=== PATIENT | male | born 1960 | race Caucasian/White ===

== ENCOUNTER 2023-10-22 13:45 | Inpatient (IN) | payer BC ==
[~2023-10-22] VITALS: Ht 170.2 cm; Wt 104.1 kg
[2023-10-22] MEDS ORDERED: EPITOL PO (16:46)
[2023-10-22] MEDS ORDERED: KEPPRA1000 MG PO ×2 (16:47)
[2023-10-22 16:51] VITALS: BP 130/61; PULSE 89; TEMP 97.5
[2023-10-22] MEDS ORDERED: LAMICTAL200 MG PO (16:51)
[2023-10-22] MEDS ORDERED: TYLENOL 500MG500 MG PO (16:53)
[2023-10-22] MEDS ORDERED: MILK OF MA400 MG/52 PO (16:54)
[2023-10-22] MEDS ORDERED: ASPIRIN 32325 MG/TAB PO (16:55)
[2023-10-22] MEDS ORDERED: DULCOLAX S10 MG/SUPP RC (16:55)
[2023-10-22] MEDS ORDERED: KLONOPIN 0.5MG0.5 MG PO (16:56)
[2023-10-22] MEDS ORDERED: NEURONTIN100 MG/CAP PO (16:56)
[2023-10-22] MEDS ORDERED: VITAMIN A PO (16:58)
[2023-10-22] MEDS ORDERED: ASCORBIC ACID PO (16:58)
[2023-10-22] MEDS ORDERED: VITAMIN E PO (16:58)
[2023-10-22] MEDS ORDERED: OXY IR5 MG PO (16:59)
[2023-10-22] MEDS ORDERED: SENNA-S 50 MG-81 TAB PO (17:00)
[2023-10-22] MEDS ORDERED: Acetaminophen 325 MG TAB PO PRN (17:15)
[2023-10-22] MEDS ORDERED: Naloxone 0.4 MG/ML VIAL IV PRN (17:15)
[2023-10-22] MEDS ORDERED: oxyCODONE 5 MG TAB PO PRN (17:15)
[2023-10-22] MEDS ORDERED: Docusate Sodium 100 MG CAP PO PRN (17:15)
[2023-10-22] MEDS ORDERED: Sennosides/Docusate 8.6-50 MG TAB PO PRN (17:15)
[2023-10-22] MEDS ORDERED: Polyethylene Glycol 3350 17 GM PDS PO PRN (17:15)
[2023-10-22] MEDS ORDERED: carBAMazepine 200 MG TAB PO SCH (17:26)
--- NOTE | 2023-10-22 17:50 | NUR ---
1625 THIS RN WENT DOWN TO PT ADMISSIONS TO TRANSPORT PT TO ROOM 333. PT WAS ADMITTED FROM THE [facility] POST L TOTAL HIP REVISION. PT IS AXOX4. PT IS ON RA. PT HAS CONGENITAL DEFECTS CAUSING SHORTER ARM LENGTH. 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 PT'S HOME MEDS IN PTS MED BIN IN MED ROOM AND PHARMACY CALLED TO [facility]. PT ORIENTED TO ROOM AND FLOOR. PT GIVEN CALL LIGHT AND INSTRUCTED TO CALL WITH ALL NEEDS. PT HAS A MEPILEX TO LEFT HIP WITH OLD DRAINAGE, MARKED BY THE SURGICAL CENTER, WITH NO CHANGES. DRESSING TO BE CHANGED ON POD7. 1655- BEDSIDE TO EVALUATE PT.
[2023-10-22 19:00] VITALS: BP_SYST 130
--- NOTE | 2023-10-22 19:00 | NUR ---
Received change of shift report from day shift nurse. Patient up in chair during report. No needs reported. Call light in reach.
[2023-10-22] MEDS ORDERED: levETIRAcetam 500 MG TAB PO SCH (21:00)
[2023-10-22] MEDS ORDERED: lamoTRIgine 100 MG TAB PO SCH (21:00)
[2023-10-22] MEDS ORDERED: Sennosides/Docusate 8.6-50 MG TAB PO SCH (21:00)
[2023-10-22] MEDS ORDERED: clonazePAM 0.5 MG TAB PO SCH (21:00)
[2023-10-22] MEDS ORDERED: Aspirin 325 MG TAB PO SCH (21:00)
--- NOTE | 2023-10-22 23:01 | NUR ---
Patient resting in bed with no needs reported at this time. Exit alarm on, call light in reach.
[2023-10-23 04:27] VITALS: BP 149/80; PULSE 83; TEMP 98.3
[2023-10-23 07:00] VITALS: BP_SYST 149
--- NOTE | 2023-10-23 07:27 | NUR ---
RECIEVED REPORT FROM INOCENCIO FLORES RN.
--- NOTE | 2023-10-23 07:58 | NUR ---
Change of shift report given to day shift nurseRegine.
[2023-10-23] MEDS ORDERED: Gabapentin 100 MG CAP PO SCH (09:00)
[2023-10-23] MEDS ORDERED: levETIRAcetam 500 MG TAB PO SCH (09:00)
--- NOTE | 2023-10-23 09:47 | NUR ---
PT ALERT AND ORIENTED. SHIFT ASSESSMENT COMPLETE. VSS, MEDICATED PER EMAR. DENIES FURHTER NEEDS AT THIS TIME, CALL LIGHT WITHIN REACH. CHAIR ALARM SET.
--- NOTE | 2023-10-23 17:04 | NUR ---
Has lack of transportation kept you from medical appts, meetings, work, or from getting things needed for daily living? no How often do you feel lonely or isolated from those around you? rarely Over the past 5 days, how much of the time has pain made it hard for you to sleep? frequently Over the past 5 days, how often have you limited your participation in therapy due to pain? occasionally Over the past 5 days, how often have you limited your day-to-day activities because of pain? rarely/not at all Have you had 2 or more falls in the past year or any fall with an injury? yes Did you have major surgery during the 100 days prior to admission? yes
[2023-10-23 17:49] VITALS: BP 120/74; PULSE 93; TEMP 98.8
[2023-10-23 19:01] VITALS: BP_SYST 120
--- NOTE | 2023-10-23 19:02 | NUR ---
RECEIVED CHANGE OF SHIFT REPORT FROM DAY SHIFT NURSE. EXIT ALARMS ON WHEN IN BED OR UP IN CHAIR WITH CALL LIGHT IN REACH.
[2023-10-24 05:07] VITALS: BP 141/68; PULSE 73; TEMP 97.6
--- NOTE | 2023-10-24 05:19 | NUR ---
UP TO BATHROOM, DENIES ANY OTHER NEEDS OR CONCERNS AT THIS TIME. RESTING IN BED AFTER BACK FROM BATHROOM, EXIT ALARM ON, CALL LIGHT IN REACH.
[2023-10-24 07:05] VITALS: BP_SYST 141
--- NOTE | 2023-10-24 07:13 | NUR ---
CHANGE OF SHIFT REPORT GIVEN TO DAY SHIFT NURSETAL.
--- NOTE | 2023-10-24 08:00 | NUR ---
PT ALERT AND ORIENTED. ASSESSES, MEDICATED PER EMAR. PT DENIES PAIN AT THIS TIME. DENIES FURTHER NEED AT THIS TIME. CALL LIGHT WITHIN REACH. CHAIR ALARM SET.
--- NOTE | 2023-10-24 10:34 | NUR ---
Initial visit; Patient thanked News Reporter for looking in on him and visiting about his former work in [place]. News Reporter offered Spiritual Care and and wished Ze well.
--- NOTE | 2023-10-24 10:49 | NUR ---
supervisor shed workers met with pt to complete intake to IPR floor. Patient states he lives alone in [place]. He sees Dr. Aviles and obtains medications from [facility] with no difficulties. He reports his contacts to be his brother, Pierre [phone] and sister, Chandrika [phone]. His mother is . He does not have a DPOA-HC, but completed one listing his siblings. He does not have stairs at home. Patient reports he has gnosticism friends that drive him around. Patient has a FWW and shower chair. He reports to be independent with ADLS, but [facility], and [facility]. SW informed him of potential discharge for 10/31 and patient was agreeable. He reports wanting to go home with [facility] services. SW had OT Taiwo witness DPOA-HC. Copy in chart and patient with original and copies. [facility] and [facility] informed they are no longer a certified HH agency. Patient will need to chose another agency. Discharge Plan: 10/31 Home with HH tbd
[2023-10-24 17:37] VITALS: BP 152/79; PULSE 83; TEMP 98.1
[2023-10-24 19:04] VITALS: BP_SYST 152
--- NOTE | 2023-10-24 19:05 | NUR ---
RECEIVED CHANGE OF SHIFT REPORT FROM DAY SHIFT NURSE.
--- NOTE | 2023-10-25 04:12 | NUR ---
OBSERVED TO PATIENT'S BACK, RED SOMEWHAT RAISE RASH THAT PATIENT REPORTS NO ITCHING/PAIN COMPLAINTS. PLACE FLAT SHEET TO BED FOR PATIENT TO LAY ON FOR COMFORT AT THIS TIME.
[2023-10-25 05:24] VITALS: BP 143/83; PULSE 82; TEMP 97.7
--- NOTE | 2023-10-25 06:08 | NUR ---
PATIENT UP IN CHAIR AFTER VOIDING IN BATHROOM. PATIENT DENIES ANY DISCOMFORT FOR NEED FOR PAIN MEDS AT THIS TIME. EXIT ALARM ON, CALL LIGHT IN REACH.
--- NOTE | 2023-10-25 06:58 | NUR ---
CHANGE OF SHIFT REPORT GIVEN TO DAY SHIFT NURSEFCO. PATIENT UP IN CHAIR WITH EXIT ALARM ON, CALL LIGHT IN REACH.
[2023-10-25 07:00] VITALS: BP_SYST 143
[2023-10-25] MEDS ORDERED: Hydrocortisone 1% Cream 30 GM TUBE TP SCH (10:05)
--- NOTE | 2023-10-25 14:12 | NUR ---
kennel worker met with pt to provide Medicare.gov list of Home Health agencies. Pt chose [facility]. SW faxed referral. SW spoke with patient about a team meeting and if he would like to schedule one. Pt would like SW to call his brother, Pierre and sister, Chandrika to schedule. SW attempted to call Pierre and could not get through. Chandrika answered and says she can attend a meeting by phone tomorrow at 1pm. She advised she will tell her brother whom is a teacher. ISHMAEL recieved a call from Pierre who reports the time will not work for him as he is a teacher. ISMHAEL informed him of the only time options. He says he will get an update from his sister after. ISHMAEL confirmed the discharge plan and date with him. Pierre reports he will be the one picking up his brother at discharge. ISHMAEL informed pt of the set time tomorrow and that his sister will attend via phone. ISHMAEL informed IPR Director Una. Discharge Plan: Home 10/31 with HH
--- NOTE | 2023-10-25 14:19 | NUR ---
Admission QIM scores were reviewed by the team. Code of 6 chosen for eating was determined by team discussion to be the most usual performance before interventions for this patient during the assessment period. Code of 4 chosen for oral hygiene was determined by team discussion to be the most usual performance before interventions for this patient during the assessment period. Code of 3 chosen for sit to lying was determined by team discussion to be the most usual performance before interventions for this patient during the assessment period. Code of 3 chosen for lying to sitting side of bed was determined by team discussion to be the most usual performance before interventions for this patient during the assessment period. Code of 3 chosen for sit to stand was determined by team discussion to be the most usual performance for this patient during the discharge assessment period. Code of 3 chosen for chair/bed to chair transfer was determined by team discussion to be the most usual performance before interventions for this patient during the assessment period. Code of 3 chosen for 1 step was determined by team discussion to be the most usual performance before interventions for this patient during the assessment period.--Una Mueller, PD
[2023-10-25 17:40] VITALS: BP 135/78; PULSE 80; TEMP 98.3
[2023-10-25 19:00] VITALS: BP_SYST 135
--- NOTE | 2023-10-25 21:25 | NUR ---
PT UP IN CHAIR AT BEDSIDE. HS MEDS GIVEN. HAS USED URINAL, YELLOW URINE EMPTIED. DENIES NEED FOR PAIN MEDS. BACK HAS DIFFUSE RASH, PT DENIES ITCHING, HYDROCORTISONE CREAM APPLIED.
--- NOTE | 2023-10-26 03:00 | NUR ---
ASSISTED PT WITH URINAL. NOTED DRAINAGE TO AQUACELL TO LT HIP. PT DENIES NEED FOR PAIN MEDS.
[2023-10-26 05:08] VITALS: BP 132/79; PULSE 82; TEMP 97.8
[2023-10-26 07:00] VITALS: BP_SYST 132
--- NOTE | 2023-10-26 13:14 | NUR ---
make up worker attended family meeting for patient. Sister, Chandrika was called on the phone. The team went over patient's progress and expected discharge plans. Pt will discharge 10/31 with HH. No equipment needs were expressed. Chandrika asked further questions regarding what HH will do. ISHMAEL answered. make up worker was informed by [facility] they cannot accept pt. ISHMAEL met with pt and chose another HH agency from the Medicare.gov list. ISHMAEL faxed referral of choice to [facility]. They informed that they do not serve [facility]. ISHMAEL spoke with pt and he chose [facility]. ISHMAEL Luong faxed referral. Discharge Plan: Home 10/31 with HH tbd?
[2023-10-26 17:11] VITALS: BP 124/75; PULSE 76; TEMP 97.8
[2023-10-26 19:00] VITALS: BP_SYST 124
--- NOTE | 2023-10-26 20:20 | NUR ---
Patient resting in chair. Denies any pain or needs at this time. Assessment complete. Meds given. Call light and personal items in reach. Bed in low position and chair alarm on.
--- NOTE | 2023-10-27 05:45 | NUR ---
Patient resting in bed with eyes closed. Respirations even and unlabored. No changes overnigt. Call light and personal items in reach. Bed in low position and bed alarm on.
[2023-10-27 05:48] VITALS: BP 151/82; PULSE 73; TEMP 97.7
--- NOTE | 2023-10-27 15:47 | NUR ---
Home Improvement Advisor faxed referral to [facility].
[2023-10-27 17:08] VITALS: BP 148/77; PULSE 78; TEMP 98.4
[2023-10-27 19:00] VITALS: BP_SYST 148
--- NOTE | 2023-10-27 21:00 | NUR ---
PT IN RECLINER AT BEDSIDE. IS ALERT AND ORIENTED X4. TAKES HS MEDS WITHOUT PROBLEM. DRSG TO LT HIP CHANGED TO 4X4 GAUZE WITH TEGADERM COVER. INCISION WELL APPROXIMATED. LT HEEL WITH DRY ABRASION, INSPECTOR HAIRSPRING TRUING. DENIES NEED FOR PAIN MEDS AT THIS TIME.
[2023-10-28 06:24] VITALS: BP 132/75; PULSE 71; TEMP 97.5
[2023-10-28 07:00] VITALS: BP_SYST 132
--- NOTE | 2023-10-28 07:53 | NUR ---
PATIENT SITTING UP IN RECLINER. ASSESSMENT COMPLETE. PATIENT DENIES PAIN OR DISCOMFORT AT THIS TIME. WILL CONT TO MONITOR FOR CHANGES.
--- NOTE | 2023-10-28 16:18 | NUR ---
PATIENT SITTING UP IN BED WATCHING FOOTBALL GAME. PATIENT DENIES PAIN OR DISCOMFORT AT THIS TIME. PATIENT HAS HAD UNEVENTFUL DAY.
[2023-10-28 17:09] VITALS: BP 136/78; PULSE 77; TEMP 98
[2023-10-28 19:00] VITALS: BP_SYST 136
--- NOTE | 2023-10-28 21:15 | NUR ---
PT IN CHAIR AT BEDSIDE, IS WATCHING TV. IS ALERT AND ORIENTED X4. HS MEDS GIVEN WITHOUT PROBLEM. SNACK PROVIDED. USING URINAL WITH ASSIST. DRSG TO LT HIP D/I.
--- NOTE | 2023-10-29 01:12 | NUR ---
PT COMPLAINS OF LT INNER THIGH PAIN, MEDICATED WITH OXYCODONE 5MG PO NOW.
--- NOTE | 2023-10-29 05:37 | NUR ---
PT DRSG TO LT HIP OFF, REDRESSED WITH GAUZE AND TEGADERM. ASSISTED TO AND FROM BATHROOM WITH ONE ASSIST/GAIT BELT/WALKER.
[2023-10-29 05:47] VITALS: BP 122/70; PULSE 75; TEMP 98.1
[2023-10-29 07:00] VITALS: BP_SYST 122
--- NOTE | 2023-10-29 07:18 | NUR ---
Shift report received from night RN. No events reported overnight. Pt sleeping supine in bed w/ even & unlabored resps. Call light in reach. Fall precautions in place.
--- NOTE | 2023-10-29 07:32 | NUR ---
Pt sitting in recliner eating breakfast. Pt reporting L hip pain at 3/10 & would like pain medication priort to OT in 30 minutes. Oxycodone given per PRN order. Other needs denied.
--- NOTE | 2023-10-29 11:29 | NUR ---
Pt ambulating off unit w/ OT. Pt reporting increased L hip pain since yesterday. Too soon for next dose of Oxycodone. Tylenol given per PRN order.
--- NOTE | 2023-10-29 14:07 | NUR ---
Pt back in his room after working w/ PT. Pt reporting that his hip is still hurting. Spoke w/ PT & pt had no issues w/ PT over the weekend & pt states he mostly sat up & watching football yesterday. IPR Director to speak w/ Hospitalist about possible hip XR today. Pt denies other needs at this time. Call light in reach. Fall precautions in place.
--- NOTE | 2023-10-29 14:51 | NUR ---
Radiologic Tech spoke with Ara at [facility] who advised they can accept patient. SW met with patient to check in. Patient advised he is having more pain in his hip and that he is going to have another x-ray. Discharge date is tentatively set for 10/31/23.
--- NOTE | 2023-10-29 16:20 | NUR ---
Rad at the bedside for XR. L hip dislocation noted. Hospitalist notified. Attempting to notify surgeon Dr. Purdy.
--- NOTE | 2023-10-29 16:25 | NUR ---
Dr. Purdy's nurse notified. She will contact Ortho on-call & will call this RN back. Awaiting callback.
--- NOTE | 2023-10-29 16:40 | NUR ---
Callback received from Dr. Purdy's nurse. Nurse advised to call to Dr. Frias (on-call). Dr. Frias notified.
[2023-10-29 18:00] VITALS: BP 127/80; PULSE 76; TEMP 97.5
--- NOTE | 2023-10-29 18:47 | NUR ---
Callback received from Dr. Frias. Okay for pt to eat dinner. NPO after midnight. JIL Friend, to see pt in the morning to discuss possible return to OR. Pt is to be NWB to LLE. Discussed w/ pt. He had no further questions at this time. Denies the need for pain medication at this time as he "not moving around". Other needs denied. Call light in reach. Chair alarm on.
[2023-10-29 19:01] VITALS: BP_SYST 127
--- NOTE | 2023-10-29 19:02 | NUR ---
CHANGE OF SHIFT REPORT RECEIVED CHANGE FROM DAY SHIFT NURSE. PATIENT UP IN CHAIR DURING REPORT. EXIT ALARM ON, CALL LIGHT IN REACH.
--- NOTE | 2023-10-29 23:40 | NUR ---
PATIENT CONTINUES TO SIT UP IN RECLINER CHAIR, WATCHING TV. AWARE NPO STATUS AFTER MIDNIGHT WITH NO QUESTIONS. DENIES ANY DISCOMFORT AT REST IN CHAIR.
--- NOTE | 2023-10-30 04:31 | NUR ---
UP TO BATHROOM, NEEDED THROUGH THE NIGHT, NO PAIN MEDS GIVEN AT TIME OF ACTIVITY, DENIES NEED FOR PAIN MEDS WHEN BACK TO BED. PATIENT CONTINUES TO BE NPO FOR POSSIBLE SURGERY LATER TO DAY IF ORDERED. PATIENT REPORTS NO QUESTIONS OR CONCERNS AT THIS TIME.
[2023-10-30 05:20] VITALS: BP 127/72; PULSE 85; TEMP 98.1
--- NOTE | 2023-10-30 07:18 | NUR ---
CHANGE OF SHIFT REPORT GIVEN TO DAY SHIFT NURSESHIVANI.
--- NOTE | 2023-10-30 08:00 | NUR ---
PATIENT IS A&O. VSS. C/O MILD TO MOD DISCOMFORT IN LLE. GAVE PRN ROXICODONE WITH AM MEDS. NWB TO LLE DUE TO DISLOCATION OF POST-OP LTH REVISION. ORTHO MAKING ROUNDS AND RECOMMEND EITHER SHIPPING PATIENT OUT OR ADMITING PATIENT TO THE SURGICAL UNIT AND CAN FIX HIS HIP NEXT SUNDAY. PATIENT WAS NPO, DIET CHANGED DUE TO NO SURGERY TODAY PER ORTHO. AM MEDS GIVEN, ORTHO & DISCUSSED AND AGREED TO KEEP ASA 325MG, GIVEN WITH AM MEDS. ORTHO TO CALL FAMILY AND DISCUSS OPTIONS. AWAITING ORDERS.
--- NOTE | 2023-10-30 10:40 | NUR ---
Patient is being discharged to back to acute. Enterprise Mobility Architect notified [facility].
--- NOTE | 2023-10-30 14:00 | NUR ---
PATIENT DISCHARGING FROM [facility] AND TRANSFERING TO SURGICAL INPATIENT FOR FUTURE SURGERY.
[2023-10-30] MEDS ORDERED: HYDROCORTISONE30 G3 TP (14:57)
== END 2023-10-30 14:00 | disposition short-term general hospital (02) | DRG 950 ==
PROVIDERS: ADMIT Physical Medicine & Rehabilitation Sports Medicine
DX: T84.091D Other mechanical complication of internal left hip prosthesis, subsequent encounter (principal); R26.89 Other abnormalities of gait and mobility; N40.0 Benign prostatic hyperplasia without lower urinary tract symptoms; Q74.9 Unspecified congenital malformation of limb(s); E78.5 Hyperlipidemia, unspecified; G47.00 Insomnia, unspecified; G62.9 Polyneuropathy, unspecified; E66.01 Morbid (severe) obesity due to excess calories; R53.81 Other malaise; L40.9 Psoriasis, unspecified; J30.2 Other seasonal allergic rhinitis; S90.812D Abrasion, left foot, subsequent encounter; G40.909 Epilepsy, unspecified, not intractable, without status epilepticus; Z79.82 Long term (current) use of aspirin; Z79.899 Other long term (current) drug therapy; Z79.891 Long term (current) use of opiate analgesic; Y83.1 Surgical operation with implant of artificial internal device as the cause of abnormal reaction of the patient, or of later complication, without mention of misadventure at the time of the procedure; Z74.09 Other reduced mobility; W19.XXXD Unspecified fall, subsequent encounter; Z96.642 Presence of left artificial hip joint; Z68.34 Body mass index [BMI] 34.0-34.9, adult; L74.0 Miliaria rubra
CPT/HCPCS: A9284

== ENCOUNTER 2023-10-30 14:11 | Inpatient (IN) | payer BC ==
[~2023-10-30] VITALS: Ht 170.2 cm; Wt 104.1 kg
--- NOTE | 2023-10-30 14:00 | NUR ---
PATIENT ADMITED FROM IPR INTO ROOM 325 WITH DISLOCATED LEFT HIP POST-OP REVISION. NWB TO LLE. A&O. VSS. REPORTS VERY LITTLE DISCOMFORT IN LLE AT REST. 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 ADMITTED WITH NO IV SITE. HEAD TO TOE ASSESSMENT COMPLETE. NOTIFIED HOSPITALIST OF ARRIVAL, MED REEC UPDATED, AWAITING ORDERS. PLAN IS FOR ORTHO SURGICAL INTERVENTION NEXT WEEK.
[~2023-10-30 14:11] MED LIST: ASCORBIC ACID PO; ASPIRIN 32325 MG/TAB PO; DULCOLAX S10 MG/SUPP RC; EPITOL PO; KEPPRA1000 MG PO; KLONOPIN 0.5MG0.5 MG PO; LAMICTAL200 MG PO; MILK OF MA400 MG/52 PO; NEURONTIN100 MG/CAP PO; OXY IR5 MG PO; SENNA-S 50 MG-81 TAB PO; TYLENOL 500MG500 MG PO; VITAMIN A PO; VITAMIN E PO
[2023-10-30 14:34] VITALS: BP 132/80; PULSE 75; TEMP 97.5
[2023-10-30] MEDS ORDERED: HYDROCORTISONE30 G3 TP (14:57)
[2023-10-30 15:31] VITALS: BP 119/74; PULSE 74
[2023-10-30 16:00] VITALS: BP_SYST 119
[2023-10-30 17:30] VITALS: BP_SYST 119
--- NOTE | 2023-10-30 18:45 | NUR ---
PT SITTING IN CHAIR WATCHING TV. PT IS AXOX3. PT HAS CALL LIGHT Predictry. PT INSTRUCTED TO CALL WITH AL NEEDS.
[2023-10-30 20:04] VITALS: BP 131/77; PULSE 73; TEMP 97.9
[2023-10-30 21:05] VITALS: BP_SYST 131
[2023-10-31] VITALS (13 sets, daily range): BP systolic 114–130; BP diastolic 69–79; PULSE 71–79; TEMP 97.6–98
[2023-10-31 06:42] LABS: BASO % 0.7 % (0.0-2.0); EOS # 0.3 K/mm3 (0.0-0.7); EOS % 7.1 % (0.0-4.0); GRAN # 2.3 K/mm3 (1.4-6.5); GRAN % 51.7 % (42.2-75.2); HEMOGLOBIN 11.7 g/dl (13.5-18.0); LYMPH # 1.4 K/mm3 (1.2-3.4); LYMPH % 31.2 % (20.0-51.0); MEAN CELL VOLUME 98 fl (80.0-100.0); MEAN CORPUSCULAR HEMOGLOBIN 34 pg (27-31); MEAN CORPUSCULAR HGB CONC 35 g/dl (33.0-37.0); MEAN PLATELET VOLUME 9.3 fl (7.4-10.4); MONO # 0.4 K/mm3 (0.1-0.6); MONO % 9.1 % (1.7-9.3); PLATELET COUNT 335 K/mm3 (130-400); RED BLOOD COUNT 3.44 M/mm3 (4.20-5.60); REDCELL DISTRIBUTION WIDTH-CV 13.4 % (11.5-14.5)
[2023-10-31 06:43] LABS: HEMATOCRIT 33.7 % (42.0-52.0)
[2023-10-31 07:00] LABS: CALCIUM 8.6 mg/dL (8.4-10.2); CREATININE, serum 0.68 mg/dL (0.72-1.25); POTASSIUM 3.9 mmol/L (3.5-4.5)
--- NOTE | 2023-10-31 08:39 | NUR ---
PT UP TO RECLINER WITH THERAPY NWB TO LEFT LOWER EXT. PT DENIES NEEDS. PLACED BREAKFAST ORDER FOR PATIENT. PLAN ON SURGERY TO FIX DISLOCATED LEFT HIP.
--- NOTE | 2023-10-31 09:39 | NUR ---
I spoke with pt concerning OR. I educated pt that [employer] would not let him stay until next week for surgery and that he had the option of having surgery done by a surgeon here now or he would be transferred to . I have spoken with Sejal LEY concerning the case and at this time Ortho does not want to proceed with the OR here due to equipment/complexity of the case. Per her, it was decided the best option was to transfer pt to . Pt agreed with this as well as his brother Margarito who I spoke with on the phone. I notified Dr. Calixto of this decision as well as Raj ChanContainer Maker, Cherise QUIÑONES, and Destin OKEEFE. Pt will be transferred upon acceptance by . Pt voiced understanding of decision as well as Margarito and all questions were answered.
--- NOTE | 2023-10-31 10:21 | NUR ---
Follow-up visit; Ze thanked for looking in on him and offering her sense of humor to mandi Kunz and mention to him that his smile will help him heal and get through this next surgical procedure that will repair the problems from his previous surgery. Ze thanked for offering God's blessings and encouragement.
--- NOTE | 2023-10-31 17:27 | NUR ---
WENDI MCGINNIS INDUSTRIAL ELECTRICIAN JOURNEYMAN, REPORTED THAT PT WILL NOT BE TRANSFERED AND WILL REMAIN HERE UNTIL SURGERY SUNDAY. PT UPDATED.
--- NOTE | 2023-10-31 20:30 | NUR ---
PT SITTING IN RECLINER AT BEDSIDE, HS MEDS GIVEN. NO IV SITE. IS ALERT AND ORIENTED X4. DENIES NEED FOR PAIN MEDS AT THIS TIME.
--- NOTE | 2023-10-31 22:50 | NUR ---
PT ASSISTED TO BED WITH 2 STAFF, BRONSON ORTIZ, DOES WELL. INCISION TO LT HIP D/I, DRSG INTACT. PT DENIES NEED FOR PAIN MEDS AT THIS TIME.
[2023-11-01] VITALS (12 sets, daily range): BP systolic 121–138; BP diastolic 68–80; PULSE 72–80; TEMP 97.4–98.3
--- NOTE | 2023-11-01 04:00 | NUR ---
VOIDS WITH ASSIST PER URINAL, EMPTIED 300CC YELLOW URINE. LT HIP DRSG INTACT. DENIES NEED FOR PAIN MEDS AT THIS TIME.
--- NOTE | 2023-11-01 08:00 | NUR ---
PT ALERT AND ORIENTED, VSS. RESTING IN BED COMFORTABLY, W/O COMPLAINTS OF PAIN AT THIS TIME. SHIFT ASSESSMENT COMPLETE, MEDICATED PER EMAR. AWAITING SURGERY ON LEFT HIP NEXT SUNDAY. PT IS AGREEABLE. CALL LIGHT WITHIN REACH, BED ALARM SET.
--- NOTE | 2023-11-01 08:44 | NUR ---
RECIEVED REPORT FROM GUILLERMO FLORES RN.
--- NOTE | 2023-11-01 11:43 | NUR ---
Leaf Sorter met with patient to complete initial intake. Patient was on the Inpatient Rehab Unit and had to be discharged back to the acute surgical unit for surgery next week. On the IPR unit, patient had planned to return home with [facility]. SW faxed [facility] clinical updates. Patient lives in [place] and sees Dr. hKan for primary care. [facility] Patient relies on his friends for transportation to medical appointments. Patient advised he has a front wheeled walker for ambulation, which is at bedside. Patient recently completed DPOA-HC designating his sibings, Margarito (ph#[phone]) and Chandrika (ph#[phone]). SW will continue to follow for discharge recommendations following surgery. Discharge Plan: TBD
--- NOTE | 2023-11-01 12:40 | NUR ---
Spoke w/Sejal LEY, she reassured me the equipment to do revision is coming in on Sunday and will be able to do surgery on 11/06/23.
--- NOTE | 2023-11-01 20:30 | NUR ---
PT SITTING IN RECLINER AT BEDSIDE. IS ALERT AND ORIENTED X4. TAKES MEDS WITHOUT PROBLEM. DENIES PAIN. HAS DRSG TO LT HIP D/I.
--- NOTE | 2023-11-01 21:26 | NUR ---
PT'S BACK RASH HAS HEALED, DENIES ITCHING.
--- NOTE | 2023-11-01 22:45 | NUR ---
ASSISTED TO BED WITH 2 ASSIST.
[2023-11-02] VITALS (12 sets, daily range): BP systolic 117–145; BP diastolic 72–87; PULSE 63–76; TEMP 97.6–98.4
[2023-11-02 07:53] LABS: CALCIUM 8.9 mg/dL (8.4-10.2); CREATININE, serum 0.69 mg/dL (0.72-1.25); POTASSIUM 4.1 mmol/L (3.5-4.5)
--- NOTE | 2023-11-02 08:00 | NUR ---
PATIENT IS A&O. VSS. NO C/O PAIN OR NAUSEA. PATIENT UP IN BEDSIDE CHAIR. NWB TO LLE WITH WALKER. PLAN IS FOR PATIENT TO GO BACK TO SURGERY TO CORRECT DISLOCATED LEFT HIP ON SUNDAY. PATIENT DOING VERY WELL AND HAS NO C/O PAIN. HEAD TO TOE ASSESSMENT COMPLETE. NO IV SITE. TOLERATING GEN DIET. NO OTHER NEEDS AT THIS TIME. CALL LIGHT IN REACH. CHAIR ALARM ON.
[2023-11-02 08:06] LABS: BASO % 0.6 % (0.0-2.0); EOS # 0.2 K/mm3 (0.0-0.7); EOS % 5.1 % (0.0-4.0); GRAN # 2.7 K/mm3 (1.4-6.5); GRAN % 57.4 % (42.2-75.2); HEMOGLOBIN 12.4 g/dl (13.5-18.0); LYMPH # 1.3 K/mm3 (1.2-3.4); LYMPH % 28.4 % (20.0-51.0); MEAN CELL VOLUME 100 fl (80.0-100.0); MEAN CORPUSCULAR HEMOGLOBIN 34 pg (27-31); MEAN CORPUSCULAR HGB CONC 34 g/dl (33.0-37.0); MEAN PLATELET VOLUME 9.7 fl (7.4-10.4); MONO # 0.4 K/mm3 (0.1-0.6); MONO % 8.3 % (1.7-9.3); PLATELET COUNT 354 K/mm3 (130-400); REDCELL DISTRIBUTION WIDTH-CV 13.6 % (11.5-14.5)
[2023-11-02 08:09] LABS: HEMATOCRIT 36.8 % (42.0-52.0)
--- NOTE | 2023-11-02 19:46 | NUR ---
Patient assessed at this time, see shift assessment, A/Ox4, reports pain isn't bad, PS of 2-3/10, denies the needs for pain meds, reminded to call whenever pain increases, no IV at this time, dressing to left hip CDI, call light and personal items within reach, fall precautions in place, will continue to monitor.
[2023-11-03] VITALS (11 sets, daily range): BP systolic 125–143; BP diastolic 75–81; PULSE 69–76; TEMP 97.4–98.9
--- NOTE | 2023-11-03 00:24 | NUR ---
Patient called with c/o pain to his left hip, PS of 4/10, medicated with scheduled tylenol and oxycodone.
--- NOTE | 2023-11-03 06:13 | NUR ---
Patient resting in bed, looks comfortable, respirations even and unlabored.
--- NOTE | 2023-11-03 08:24 | NUR ---
PT UP TO RECLINER WITH ASIIST X2. PT EATING AND DRINKING NO NAUSEA OR VOMITING. PT DENIES PAIN AT THIS TIME. DRESSING TO LEFT HIP CDI WITH GAUZE AND TEGADERM OVER INCISIONS.
--- NOTE | 2023-11-03 15:00 | NUR ---
REPORT RECEIVED FROM VINNIE DIEGO RESTING IN CHAIR WITH NO PAIN AT THIS TIME. DRESSING TO LEFT HIP CLEAN AND DRY, NO IV, WILL CONTINUE TO MONITOR.
--- NOTE | 2023-11-03 20:26 | NUR ---
Patient in bed watching TV, assessed at this time, denies pain or discomfort at this time, took pills without any difficulty, denies further needs, call light and personal items within reach, will continue to monitor.
[2023-11-04] VITALS (13 sets, daily range): BP systolic 118–151; BP diastolic 72–84; PULSE 67–78; TEMP 97.4–98.5
--- NOTE | 2023-11-04 08:18 | NUR ---
PT UP TO RECLINER FOR BREAKFAST WITH ASSIST X2. NWB LEFT LEG. TYLENOL FOR PAIN IS CURRENTLY COVERING. DRESSING TO LEFT HIP CDI WITH GAUZE AND TEGADERM OVER INCISION SITES. PLAN ON REVISION ON WITH DR. BEDOYA.
--- NOTE | 2023-11-04 19:29 | NUR ---
Patient sitting up in a recliner watching football game on TV, tooks pills fine, denies pain or discomfort, denies further needs, call light and personal items within reach, will continue to monitor.
[2023-11-05] VITALS (12 sets, daily range): BP systolic 102–144; BP diastolic 74–82; PULSE 71–79; TEMP 96.9–98.4
--- NOTE | 2023-11-05 09:00 | NUR ---
Pt doing well this morning. Minimal pain at this time, reports it is tolerable. Pt is sitting up in the chair. He has had breakfast, no issues or complaints
--- NOTE | 2023-11-05 14:37 | NUR ---
Pt continues to do well. Pt aware of surgery tomorrow and that he will not be able to eat or drink after midnight. Consent is signed. No needs, pain tolerable
--- NOTE | 2023-11-05 21:20 | NUR ---
PT SITTING IN CHAIR AT BEDSIDE, TAKES HS MEDS. IS AWARE HE WILL BE NPO AT MIDNIGHT FOR SURGERY TOMORROW. HAS DRSG TO LT HIP D/I. SCAB TO LT HEEL DRY, JAMES. BACK RASH HEALED. DENIES PAIN. IS NWB LLE.
[2023-11-06] VITALS (16 sets, daily range): BP systolic 89–143; BP diastolic 51–86; PULSE 63–88; TEMP 97.4–98.5
--- NOTE | 2023-11-06 00:10 | NUR ---
SCHEDULED ES TYLENOL GIVEN, PT NOW NPO FOR SURGERY IN THE AFTERNOON.
--- NOTE | 2023-11-06 10:00 | NUR ---
Pt doing well this morning. Assisted him up to the chair, max 2 assist with walker. Pt aware that he plan is for surery around 3pm this afternoon. No needs, will continue to monitor
[2023-11-06 10:01] LABS: BASO % 0.9 % (0.0-2.0); EOS # 0.2 K/mm3 (0.0-0.7); EOS % 3.4 % (0.0-4.0); GRAN # 2.7 K/mm3 (1.4-6.5); GRAN % 60.7 % (42.2-75.2); HEMATOCRIT 37.3 % (42.0-52.0); HEMOGLOBIN 12.8 g/dl (13.5-18.0); LYMPH # 1.2 K/mm3 (1.2-3.4); LYMPH % 27.4 % (20.0-51.0); MEAN CELL VOLUME 98 fl (80.0-100.0); MEAN CORPUSCULAR HEMOGLOBIN 34 pg (27-31); MEAN CORPUSCULAR HGB CONC 34 g/dl (33.0-37.0); MEAN PLATELET VOLUME 9.3 fl (7.4-10.4); MONO # 0.3 K/mm3 (0.1-0.6); MONO % 7.2 % (1.7-9.3); PLATELET COUNT 308 K/mm3 (130-400); RED BLOOD COUNT 3.81 M/mm3 (4.20-5.60); REDCELL DISTRIBUTION WIDTH-CV 13.4 % (11.5-14.5)
[2023-11-06 10:15] LABS: CALCIUM 8.7 mg/dL (8.4-10.2); CREATININE, serum 0.65 mg/dL (0.72-1.25); POTASSIUM 3.9 mmol/L (3.5-4.5)
--- NOTE | 2023-11-06 11:00 | NUR ---
STARTED 22G IV INTO LEFT HAND ON FIRST ATTEMPT FOR PENDING SURGERY TODAY. IV TO INT.
--- NOTE | 2023-11-06 11:09 | NUR ---
IV placed by Abbie OKEEFE
--- NOTE | 2023-11-06 13:00 | NUR ---
Sponge bath provided to pt, new gown and linens. Pt ready for surgery, plan for 1500
--- NOTE | 2023-11-06 14:40 | NUR ---
Pt off the floor for surgery
--- NOTE | 2023-11-06 19:15 | NUR ---
PT RETURNS FROM SURGERY POST LT HIP REVISION. PT IS AWAKE, HAS OXYMASK ON. IVF TO LT HAND. BULKY DRSG TO LT HIP, ICE PACK IN PLACE. SCDS PLACED ON PT.
--- NOTE | 2023-11-06 20:25 | NUR ---
PT HAVING PAIN, NOTIFIED JUANA POT WASHER FOR IV PAIN MEDS. NEW ORDER FOR MORPHINE, DOSE OF 2MG IVP GIVEN NOW. ASSISTED PT UP IN BED TO EAT DINNER.
--- NOTE | 2023-11-06 21:16 | NUR ---
PT FINISHED DINNER. HS MEDS GIVEN INCLUDING OXYCODONE 5MG PO AND ORAL PHENERGAN. VOIDING WELL PER URINAL. NOTED NEW OPEN AREA TO LT AND RT MID BUTTOCK. FIRST LAYER OF SKIN OFF. COVERED WITH FOAM DRSG X2 AT THIS TIME.
[2023-11-07] VITALS (12 sets, daily range): BP systolic 99–143; BP diastolic 65–84; PULSE 88–100; TEMP 98.1–99.5
--- NOTE | 2023-11-07 00:10 | NUR ---
ES TYLENOL GIVEN PER SCHEDULE.
--- NOTE | 2023-11-07 03:43 | NUR ---
MEDICATED WITH OXYCODONE 5MG PO FOR PAIN TO LT HIP 02/21. PT HAS BEEN TURNING SELF IN BED.
[2023-11-07 06:43] LABS: HEMATOCRIT 28.5 % (42.0-52.0); HEMOGLOBIN 9.9 g/dl (13.5-18.0)
--- NOTE | 2023-11-07 08:20 | NUR ---
pt a&ox3 resting in bed. meds given and assessment complete. pt rates pain a 3/10 in the left hip. incision is cdi. teds and scds to ble. fall precautions in place. INT to left hand patent. instructed pt on use of incentive spirometer. pt tolerated breakfast well. pt denies needs at this time. call light in reach.
--- NOTE | 2023-11-07 14:36 | NUR ---
Truck Hopper followed up with patient to discuss PT recommendation for IPR. Patient is agreeable to this. SW contacted Una, IPR Director to give referral.
--- NOTE | 2023-11-07 21:01 | NUR ---
PT IN BED, IS ALERT AND ORIENTED. HS MEDS GIVEN INCLUDING OXYCODONE FOR LT LEG PAIN AND PHENERGAN 25MG PO FOR MILD NAUSEA. HAS FOAM DRSG TO EACH MID BUTTOCK, D/I. HAS LARGE DRSG TO LT HIP, D/I. VOIDING PER URINAL.
[2023-11-08] VITALS (7 sets, daily range): BP systolic 110–133; BP diastolic 66–74; PULSE 68–94; TEMP 97.6–98.5
--- NOTE | 2023-11-08 04:17 | NUR ---
RESTING IN BED, DENIES NEED FOR PAIN MEDS AT THIS TIME. VOIDING PER URINAL WITHOUT PROBLEM.
[2023-11-08 06:47] LABS: HEMATOCRIT 27.1 % (42.0-52.0); HEMOGLOBIN 8.9 g/dl (13.5-18.0)
--- NOTE | 2023-11-08 09:03 | NUR ---
PT UP IN CHAIR, WATCHING TV. TOLERATED BREAKFAST WELL. NO CONCERNS VOICED AT THIS TIME. CALL LIGHT WITHIN REACH.
--- NOTE | 2023-11-08 12:59 | NUR ---
Pt has 2 areas on bottom in question. I have looked at skin this am, but had Luanne RN look with me as well. Left buttock is stage one and right buttock is stage 2. Both areas covered with dressing
--- NOTE | 2023-11-08 14:15 | NUR ---
Patient to discharge to [facility] today. SW contacted Ara at [facility] and provided update.
== END 2023-11-08 14:00 | DRG 468 ==
LOC: SURG 14:11
PROVIDERS: Orthopaedic Surgery; Physician Assistant; ADMIT Internal Medicine
PROC: 0SPS0JZ Removal of Synthetic Substitute from Left Hip Joint, Femoral Surface, Open Approach (ICD-10-PCS; 2023-11-06)
PROC: 0QS704Z Reposition Left Upper Femur with Internal Fixation Device, Open Approach (ICD-10-PCS; 2023-11-06)
PROC: 0SRS0JZ Replacement of Left Hip Joint, Femoral Surface with Synthetic Substitute, Open Approach (ICD-10-PCS; principal; 2023-11-06 15:00)
DX: T84.021A Dislocation of internal left hip prosthesis, initial encounter (principal); T84.091A Other mechanical complication of internal left hip prosthesis, initial encounter; G40.909 Epilepsy, unspecified, not intractable, without status epilepticus; G47.00 Insomnia, unspecified; L40.9 Psoriasis, unspecified; J30.2 Other seasonal allergic rhinitis; G62.9 Polyneuropathy, unspecified; Z96.642 Presence of left artificial hip joint; E78.5 Hyperlipidemia, unspecified; F41.9 Anxiety disorder, unspecified; F32.A Depression, unspecified; D64.9 Anemia, unspecified; M97.02XA Periprosthetic fracture around internal prosthetic left hip joint, initial encounter; Y83.8 Other surgical procedures as the cause of abnormal reaction of the patient, or of later complication, without mention of misadventure at the time of the procedure; M19.90 Unspecified osteoarthritis, unspecified site; N40.0 Benign prostatic hyperplasia without lower urinary tract symptoms; Z79.82 Long term (current) use of aspirin; Z79.899 Other long term (current) drug therapy
CPT/HCPCS: A9284; C1776; J0690; J1170; J1650; J2250; J2270; J2704; J3010; J7120

== ENCOUNTER 2023-11-08 14:00 | Inpatient (IN) | payer BC ==
[~2023-11-08] VITALS: Ht 170.2 cm; Wt 119.1 kg
[~2023-11-08 14:00] MED LIST changes: +HYDROCORTISONE30 G3 TP
[2023-11-08] MEDS ORDERED: Docusate Sodium 100 MG CAP PO PRN (15:00)
[2023-11-08] MEDS ORDERED: Naloxone 0.4 MG/ML VIAL IV PRN (15:00)
[2023-11-08] MEDS ORDERED: Acetaminophen 325 MG TAB PO PRN (15:00)
[2023-11-08] MEDS ORDERED: Polyethylene Glycol 3350 17 GM PDS PO PRN (15:00)
[2023-11-08] MEDS ORDERED: oxyCODONE 5 MG TAB PO PRN (16:45)
[2023-11-08] MEDS ORDERED: carBAMazepine 200 MG TAB PO SCH (17:00)
[2023-11-08 17:04] VITALS: BP 120/75; PULSE 97; TEMP 98.9
[2023-11-08 19:00] VITALS: BP_SYST 120
--- NOTE | 2023-11-08 20:00 | NUR ---
PT SITTING IN RECLINER AT BEDSIDE. IS ALERT AND ORIENTED X4. HAS INT TO LT HAND, WILL REMOVE LATER. MAYNOR DRSG X2 TO LONG LT HIP INCISION. BILATERAL MANOLO MEDINA ON.
[2023-11-08] MEDS ORDERED: Sennosides/Docusate 8.6-50 MG TAB PO SCH ×2 (21:00)
[2023-11-08] MEDS ORDERED: Aspirin 325 MG TAB PO SCH (21:00)
[2023-11-08] MEDS ORDERED: clonazePAM 0.5 MG TAB PO SCH (21:00)
[2023-11-08] MEDS ORDERED: lamoTRIgine 100 MG TAB PO SCH (21:00)
[2023-11-08] MEDS ORDERED: levETIRAcetam 500 MG TAB PO SCH (21:00)
--- NOTE | 2023-11-08 23:00 | NUR ---
HS MEDS GIVEN. PT IN BED. NOTED FOAM DRSG'S TO EACH BUTTOCK, D/I. REMOVED INT FROM LT HAND, ANGIOCATH INTACT. DENIES NEED FOR PAIN MEDS AT THIS TIME.
--- NOTE | 2023-11-09 04:00 | NUR ---
ASSISTED PT WITH USE OF URINAL, VOIDS YELLOW URINE WITHOUT PROBLEM.
[2023-11-09 05:14] VITALS: BP 123/74; PULSE 86; TEMP 98.3
[2023-11-09 07:01] VITALS: BP_SYST 123
--- NOTE | 2023-11-09 07:02 | NUR ---
Shift report received from night RN. No events reported overnight. Pt sleeping supine in bed w/ even & unlabored resps. Call light in reach. Fall precautions in place.
[2023-11-09] MEDS ORDERED: Gabapentin 100 MG CAP PO SCH (09:00)
[2023-11-09] MEDS ORDERED: levETIRAcetam 500 MG TAB PO SCH (09:00)
--- NOTE | 2023-11-09 10:33 | NUR ---
Has lack of transportation kept you from medical appts, meetings, work, or from getting things needed for daily living? no How often do you feel lonely or isolated from those around you? never Over the past 5 days, how much of the time has pain made it hard for you to sleep? occasionally Over the past 5 days, how often have you limited your participation in therapy due to pain? rarely/not at all Over the past 5 days, how often have you limited your day-to-day activities because of pain? rarely/not at all Have you had 2 or more falls in the past year or any fall with an injury? yes Did you have major surgery during the 100 days prior to admission? yes
--- NOTE | 2023-11-09 12:48 | NUR ---
Pt sitting up in recliner after eating 100% of lunch independently. Pt denies the need for pain medication at this time. Other needs denied. Call light in reach. Chair alarm on.
--- NOTE | 2023-11-09 14:46 | NUR ---
gas systems worker and SW student, Natalee, met with patient to discuss discharge planning. Patient lives in [place] by himself in an apartment on the first floor. PCP is Dr. Khan, pharmacy is [facility]. No issues affording medications. Patient did not believe he had a DPOA-HC, so SW assisted with patient with establishing the DPOA-HC. Patient appointed his brother as primary and sister as secondary. Margarito (brother) [phone] and Chandrika (sister) [phone]. SW and Student witnessed signature. SW made copies, placed copy in chart and provided copies to patient along with the original. SW notes there was a previous DPOA-HC in the chart but did not list the address for the agents. Patient expressed he will need a walker at discharge. Patient reports he is independent with ADLS and has a form of transportation for appointments. Patient reports he does not have stairs to get into his apartment. Patient would like to return home at time of discharge. Discharge plan: Home
[2023-11-09 16:41] VITALS: BP 126/77; PULSE 85; TEMP 98
--- NOTE | 2023-11-09 17:22 | NUR ---
Pt sitting up in recliner eating dinner independently. Denies pain or discomfort. Hip dressing remains CDI. Other needs denied. Call light in reach. Chair alarm on. Specialty air mattress requested from [facility].
[2023-11-09 19:00] VITALS: BP_SYST 126
--- NOTE | 2023-11-09 20:58 | NUR ---
Patient assessed at this time, see shift assessment, denies pain or discomfort, still with aquacel dressing to left hip CDI, took pills fine, dressing to coccyx CDI, denies further needs, call light and personal items within reach, will continue to monitor.
[2023-11-10 05:09] VITALS: BP 138/82; PULSE 77; TEMP 98.1
[2023-11-10 07:08] VITALS: BP_SYST 138
--- NOTE | 2023-11-10 07:09 | NUR ---
Pt assisted to standing to use the urinal then transferred to recliner using gait belt & FWW. Pt denies pain/discomfort at this time. Reports sleeping well overnight. Denies other needs. Call light in reach. Chair alarm on.
--- NOTE | 2023-11-10 07:36 | NUR ---
Shift report received from night RN. Pt eating breakfast independently. Denies any needs at this time. Call light in reach. Fall precautions in place.
--- NOTE | 2023-11-10 09:35 | NUR ---
Pt off unit w/ PT.
--- NOTE | 2023-11-10 12:33 | NUR ---
Pt sitting up in recliner after eating lunch. BLE elevated on footrest. Pt denies pain/discomfort. Denies other needs. Call light in reach. Chair alarm on.
--- NOTE | 2023-11-10 13:16 | NUR ---
Specialty mattress not yet delivered. Waffle overlay placed on mattress.
[2023-11-10 17:30] VITALS: BP 121/70; PULSE 83; TEMP 99.2
[2023-11-10 19:00] VITALS: BP_SYST 121
--- NOTE | 2023-11-10 20:02 | NUR ---
Patient sitting up in a recliner watching TV, just returned from bathroom and had a bm, denies pain or discomfort, took pills fine, denies further needs, call light and personal items within reach, will continue to monitor.
[2023-11-11 05:56] VITALS: BP 115/70; PULSE 81; TEMP 98.3
[2023-11-11 07:02] VITALS: BP_SYST 115
--- NOTE | 2023-11-11 07:03 | NUR ---
Shift report received from night RN. No events reported overnight. Pt supervised as he stood from bed to FWW to transfer to recliner. Reports sleeping well overnight. Denies pain/discomfort. Denies other needs. Call light in reach. Chair alarm on.
--- NOTE | 2023-11-11 15:59 | NUR ---
Pt sleeping in recliner at this time w/ even & unlabored resps. Pt has had no c/o pain throughout shift so far. Aquacell dressing to L hip w/ noted drainage. Will continue to monitor. Call light in pt's reach. Chair alarm on.
[2023-11-11 17:10] VITALS: BP 110/71; PULSE 81; TEMP 98.5
--- NOTE | 2023-11-11 18:25 | NUR ---
Pt sitting up in recliner after eating dinner. Denies any needs. Denies pain/discomfort. Call light in reach. Chair alarm on.
[2023-11-11 19:08] VITALS: BP_SYST 110
[2023-11-12 05:14] VITALS: BP 126/72; PULSE 79; TEMP 98.4
[2023-11-12 07:25] LABS: BASO % 0.5 % (0.0-2.0); EOS # 0.6 K/mm3 (0.0-0.7); EOS % 10.4 % (0.0-4.0); GRAN # 3.5 K/mm3 (1.4-6.5); GRAN % 58.6 % (42.2-75.2); LYMPH # 1.4 K/mm3 (1.2-3.4); LYMPH % 22.7 % (20.0-51.0); MEAN CELL VOLUME 101 fl (80.0-100.0); MEAN CORPUSCULAR HGB CONC 33 g/dl (33.0-37.0); MEAN PLATELET VOLUME 9.5 fl (7.4-10.4); MONO # 0.4 K/mm3 (0.1-0.6); MONO % 7.3 % (1.7-9.3); PLATELET COUNT 349 K/mm3 (130-400); REDCELL DISTRIBUTION WIDTH-CV 13.3 % (11.5-14.5)
[2023-11-12 07:32] LABS: HEMATOCRIT 27.3 % (42.0-52.0); MEAN CORPUSCULAR HEMOGLOBIN 33 pg (27-31)
[2023-11-12 07:34] VITALS: BP_SYST 126
--- NOTE | 2023-11-12 07:34 | NUR ---
RECIEVED REPORT FROM SARY SMITH.
[2023-11-12 07:46] LABS: CALCIUM 8.4 mg/dL (8.4-10.2); CREATININE, serum 0.65 mg/dL (0.72-1.25); POTASSIUM 3.9 mmol/L (3.5-4.5)
--- NOTE | 2023-11-12 10:31 | NUR ---
Follow-up visit; talked with Ze about what he was watching on Tv and asked how he was doing today. Ze in his usual friendly mood thanked for coming in and checking on him and keeping him in her prayers.
--- NOTE | 2023-11-12 10:55 | NUR ---
PT ALERT AND ORIETED X4. EATS BREAKFAST INDEPENDENTLY WITH SET UP HELP. PT IS ONE PERSON ASSIST WITH FWW. NIGHT NURSE REPORTS INCONTINENCE OVERNIGHT. SHIFT ASSESSMENT COMPLETE, MEDICATED PER EMAR. DENIES PAIIN AT THIS TIME,VSS. PTS BROTHER CALLED THIS AM ASKING ABOUT WHEN PT WILL BE DISCHARGED, HE LIVES IN AND NEEDS TO MAKE ARRANGEMENTS TO GET OFF WORK. THIS WAS COMMUNICATED TO PROVIDER AN TEAM. DENIES FURTHER NEED AT THIS TIME.CALL LIGHT WITHIN REACH CHAIR ALARM SET.
[2023-11-12 17:24] VITALS: BP 113/68; PULSE 92; TEMP 98.3
--- NOTE | 2023-11-12 17:31 | NUR ---
fabric and textile factory worker briefly met with patient to check in. Patient reports he is doing well and does not have any questions or concerns at this time. SW will continue to follow.
[2023-11-12 19:00] VITALS: BP_SYST 113
--- NOTE | 2023-11-12 21:00 | NUR ---
UPON SHIFT ASSESSMENT, TEHAN WAS SITTING IN BEDSIDE RECLINER. HE IS CHEERFUL AND AXO X4. PROXIMAL TO OLD INSCISION SITE ON LT HIP, SKIN FELT WARM AND A LITTLE PINK. NO SWELLING, DRAINAGE OR PAIN NOTED. PULSES IN LLE PALPABLE BUT DIFFICULT TO FIND. AQUACELL ON REMAINING INSCISION SITES SHOW SCANT DRAINAGE OF NON ODOROUS SEROUS FLUID. VS ARE WNL AND PATIENT C/O NO PAIN OR NEEDS AT THIS TIME. CALL LIGHT WITHIN REACH.
--- NOTE | 2023-11-13 | NUR ---
WHILE REMOVING TEDHOSE, A STAGE II PRESSURE ULCER WAS NOTED PROXIMAL TO ACHILLES TENDON. MEPIPLEX PLACED.
--- NOTE | 2023-11-13 03:04 | NUR ---
WHILE ROUNDING ON PATIENT, INSPECTION OF SURGICAL SITE REVEALED AN INCREASE IN ERYTHEMA AND WARMTH ON LT HIP. DRESSINGS HAVE BECOME SATURATED WITH SEROSANGUINEOUS DRAINAGE. PATIENT'S LABS REVEAL A WBC WNL OF 11/12/23 AND PATIENT IS AFEBRILE. SOUGHT SECOND OPINION OF CHARGE NURSE, CHANTE; ASSISSTED HER IN DRESSING CHANGE AND PLACED ICE ON LT HIP. WILL RELAY TO DAYSHIFT NEW CONCERNS.
--- NOTE | 2023-11-13 03:08 | NUR ---
Shireen, RN reported to charge nurse that patient had Stage II pressure ulcer to left heel after removing grace hose. Also requested this nurse to evaluate current aquacell dressing and incision site. Dressing changed to site at this time due to saturation of serosanguineous fluid. Incision site noted to be slightly red and warm. Instructed primary nurse to pass on in dayshift report so site can be evaluated. New aquacells applied to site by this nurse x2. Foam dressing applied to left heel x2 by [id number] floated.
[2023-11-13 06:07] VITALS: BP 110/60; PULSE 76; TEMP 97.7
[2023-11-13 07:00] VITALS: BP_SYST 110
--- NOTE | 2023-11-13 12:34 | NUR ---
Admission QIM scores were reviewed by the team. Code of 2 chosen for sit to lying was determined by team discussion to be the most usual performance before interventions for this patient during the assessment period. Code of 3 chosen for sit to stand was determined by team discussion to be the most usual performance for this patient during the discharge assessment period. Code of 3 chosen for chair/bed to chair transfer was determined by team discussion to be the most usual performance before interventions for this patient during the assessment period. Code of 4 chosen for walking 10 feet was determined by team discussion to be the most usual performance for this patient during the discharge assessment period.--Una Mueller,
[2023-11-13 17:22] VITALS: BP 133/74; PULSE 73; TEMP 98.3
[2023-11-13 19:00] VITALS: BP_SYST 133
--- NOTE | 2023-11-13 21:00 | NUR ---
PT IN RECLINER AT BEDSIDE, HAS MANLOO HOSE OFF, HAS MEPILEX TO LT HEEL D/T NEW WOUND, HAS FOAM DRSG TO LT OUTER ANKLE D/T OPEN WOUND. PT HAS ELYELL DRSG TO LT HIP X2, BOTH HAVE DRAINAGE SHADOWING. HIP IS REDDENED AND WARM TO TOUCH. DENIES PAIN. HS MEDS GIVEN.
--- NOTE | 2023-11-14 05:00 | NUR ---
PT RESTING TO RT SIDE, CHANGED MEPILEX TO BUTTOCKS AT THIS TIME. ASSISTED PT TO STANDING TO VOID IN URINAL, BACK TO BED AFTER.
[2023-11-14 05:45] VITALS: BP 127/75; PULSE 78; TEMP 97.8
[2023-11-14 07:15] VITALS: BP_SYST 127
--- NOTE | 2023-11-14 07:16 | NUR ---
Shift report received from night RN. Pt sleeping supine in bed w/ even & unlabored resps. Call light in reach. Fall precautions in place.
--- NOTE | 2023-11-14 08:10 | NUR ---
Pt sitting up in recliner after eating breakfast independently. Pt waiting for OT to arrive. He reports sleeping well overnight. Denies pain/discomfort or other needs. Call light in reach. Fall precautions in place.
--- NOTE | 2023-11-14 11:18 | NUR ---
Left foot skin assessment: Open area noted to left medial ankle w/ strap santacruz present from surgical shoe. This was possibly a ruptured blister. Wound bed pink w/o drainage. Intact blister back of left heel. Open blister to back of left heel also noted. Wound bed pink w/o drainage. Pt sitting up in recliner for lunch. PRIMO boot applied to LLE. Will place new dressings after lunch when pt is back in bed.
--- NOTE | 2023-11-14 13:08 | NUR ---
Pt off unit w/ OT. Pt given oxycodone as scheduled.
--- NOTE | 2023-11-14 13:09 | NUR ---
Pt off unit w/ PT.
--- NOTE | 2023-11-14 14:06 | NUR ---
Pt ambulating off unit w/ OT.
--- NOTE | 2023-11-14 17:12 | NUR ---
Pt sitting up in recliner watching tv w/ BLE elevated on footrest. Pt has PRIMO boot on left foot - dressings CDI. Pt denies pain/discomfort at this time. Denies other needs. Call light in reach. Chair alarm on.
[2023-11-14 17:15] VITALS: BP 132/74; PULSE 87; TEMP 98.5
--- NOTE | 2023-11-14 17:39 | NUR ---
boiler plant worker attended IPR team conference to discuss patient's progress and discharge planning. Patient is scheduled to discharge on Sunday with home health and private duty caregivers. SW contacted patient's brother, Pierre, to discuss IPR team conference. Pierre will be transporting patient home and would assist patient with getting private duty caregiver if needed. SW met with patient to discuss IPR team conference and provided a copy of the notes. SW provided patient Medicare.gov list of options for home health and a list of options for private duty chore services and caregiver. Patient expressed he needed someone to help with laundry and cleaning. SW explained home health would assist with PT/OT and nursing and the chore and caregiver services would provide assistance with services in his home. Patient chose [facility] as his preference for home health and if he is not accepted with them his second choice is [facility]. Discharge plan: Home with Home Health PT/OT/Nursing and private duty caregivers
[2023-11-14 19:00] VITALS: BP_SYST 132
--- NOTE | 2023-11-14 19:20 | NUR ---
PT SITTING IN RECLINER AT BEDSIDE, ASSISTED WITH STANDING AND USING URINAL. NOTED BOTH FOAM DRSG'S SECURE TO BUTTOCKS. VOIDS YELLOW URINE AND BACK IN CHAIR. HAS LT HEEL PROTECTOR ON D/T WOUNDS TO LT HEEL AND INNER LT ANKLE FROM BOOTS HE WAS WEARING THAT CAUSED BLISTERS AND OPEN AREAS. MANOLO HOSE REMAIN OFF PER DR JULIAN. LT HIP INCISION WITH AQUACEL DRSGS'S WITH SHADOWING NOTED. DENIES PAIN. CALL LIGHT WITHIN REACH.
--- NOTE | 2023-11-15 02:00 | NUR ---
RESTING IN BED. NO COMPLAINTS.
[2023-11-15 05:44] VITALS: BP 123/73; PULSE 79; TEMP 97.4
--- NOTE | 2023-11-15 06:57 | NUR ---
awake resting in chair, bedside shift report received from SARY Garvin
[2023-11-15 06:59] VITALS: BP_SYST 123
--- NOTE | 2023-11-15 07:15 | NUR ---
remains up in chair, partial assessment completed and will complete when patient up to bathroom or working with occupational therapy, denies pain or needs at this time
--- NOTE | 2023-11-15 09:17 | NUR ---
occupational therapy in to work with patient
--- NOTE | 2023-11-15 10:37 | NUR ---
out of room for group therapy
--- NOTE | 2023-11-15 10:47 | NUR ---
physical therapy in to work with patient
--- NOTE | 2023-11-15 11:00 | NUR ---
remainder of assessment completed, airstrip dressing to left hip with drainage but is secure and not at point that needs to be changed, cocyx with mepiplex drssing to each side of buttock that were intact and not removed
--- NOTE | 2023-11-15 12:10 | NUR ---
pulled back mepiplex dressing on left heel, has 3-4cm open area on back of foot where foot and lower leg come together, has mepiplex dressing to lateral ankle bone and this was intact and not removed
--- NOTE | 2023-11-15 14:14 | NUR ---
SW Student faxed referral to [facility] (fax#[phone]).
--- NOTE | 2023-11-15 15:00 | NUR ---
up in recliner and denies needs
--- NOTE | 2023-11-15 15:06 | NUR ---
Has lack of transportation kept you from medical appts, meetings, work, or from getting things needed for daily living? no How often do you feel lonely or isolated from those around you? never Over the past 5 days, how much of the time has pain made it hard for you to sleep? rarely/not at all Over the past 5 days, how often have you limited your participation in therapy due to pain? rarely/not at all Over the past 5 days, how often have you limited your day-to-day activities because of pain? rarely/not at all
--- NOTE | 2023-11-15 16:28 | NUR ---
bedside shift report given to ADELINA Bryant
--- NOTE | 2023-11-15 16:51 | NUR ---
photographic process worker contacted patient's brother whom expressed he would tack picker his brother around 11-1130 am. SW notified [facility] director.
--- NOTE | 2023-11-15 17:47 | NUR ---
REPORT RECEIVED FROM TIGRE OKEEFE. PATIENT SITTING UP RESTING IN CHAIR. PATIENT DENIES ANY NEEDS OR CONCERNS AT THIS TIME. WILL MONITOR.
[2023-11-15 18:00] VITALS: BP 106/64; PULSE 90; TEMP 98.4
[2023-11-15 18:30] VITALS: BP_SYST 106
[2023-11-16 05:58] VITALS: BP 102/62; PULSE 79; TEMP 98.5
[2023-11-16 07:00] VITALS: BP_SYST 102
--- NOTE | 2023-11-16 08:10 | NUR ---
Pt. sitting up in chair. Pt. is A&OX3, assessment complete. Pt. denies pain or other needs, call light within reach.
--- NOTE | 2023-11-16 09:02 | NUR ---
ISHMAEL [place] contacted [facility] to check on status of referral and was informed that patient was denied due to them not being able to provide services at patient's location. Fuselage Framer Lou met with patient to discuss other options. Patient chose [facility] as well as their chore services. ISHMAEL [place] faxed referral to [facility] (fax#[phone]) and Fuselage Framer Lou left voicemail for Gonzalo with [facility] to inform her of referral. Discharge Plan: Home with
--- NOTE | 2023-11-16 11:30 | NUR ---
Pt. sitting up in chair. Discharge paperwork reviewed with the pt. Pt. voices understanding, escorted out by wheel chair.
--- NOTE | 2023-11-16 14:00 | NUR ---
Discharge QIM scores were reviewed by the team. Code of 4 chosen for toileting hygiene was determined by team discussion to be the most usual performance for this patient during the discharge assessment period. Code of 4 chosen for shower/bathe self was determined by team discussion to be the most usual performance for this patient during the discharge assessment period. Code of 6 chosen for sit to stand was determined by team discussion to be the most usual performance for this patient during the discharge assessment period. Code of 6 chosen for chair to bed was determined by team discussion to be the most usual performance for this patient during the discharge assessment period. Code of 6 chosen for walking 10 feet was determined by team discussion to be the most usual performance for this patient during the discharge assessment period. Code of 6 chosen for walking 50 feet w/ 2 turns was determined by team discussion to be the most usual performance before interventions for this patient during the discharge assessment period. Code of 6 chosen for walking 150 feet was determined by team discussion to be the most usual performance for this patient during the discharge assessment period.--Una Mueller, PD
== END 2023-11-16 11:30 | disposition home health service (06) | DRG 950 ==
PROVIDERS: ADMIT Physical Medicine & Rehabilitation Sports Medicine
DX: T84.011D Broken internal left hip prosthesis, subsequent encounter (principal); R26.89 Other abnormalities of gait and mobility; D64.89 Other specified anemias; G40.909 Epilepsy, unspecified, not intractable, without status epilepticus; G62.9 Polyneuropathy, unspecified; G47.00 Insomnia, unspecified; K59.00 Constipation, unspecified; L74.0 Miliaria rubra; Z96.643 Presence of artificial hip joint, bilateral; Z79.82 Long term (current) use of aspirin; Z79.899 Other long term (current) drug therapy; Z74.09 Other reduced mobility; Z79.891 Long term (current) use of opiate analgesic; Y82.8 Other medical devices associated with adverse incidents
CPT/HCPCS: A6197; A9284